=== PATIENT | male | born 1995 | race Caucasian/White ===

== ENCOUNTER → 2018-07-04 10:02 | Outpatient (CLI) | payer BC, SELFPAY ==
[2018-07-04 12:27] LABS: Cholesterol 194 mg/dL (200); Glucose 82 mg/dL (74-106); High Density Lipoprotein 44 mg/dL; Triglycerides 147 mg/dL; Very Low Density Lipoprotein 29 mg/dL (5-40)
== END ==
PROVIDERS: Family Provider Family Medicine; PCP Family Medicine; Visit Provider Family Medicine
DX: Z00.00 Encounter for general adult medical examination without abnormal findings (principal)
CPT/HCPCS: 36415; 80061; 82947